=== PATIENT | female | born 1990 | race Caucasian/White ===

== ENCOUNTER 2021-03-14 04:55 | Inpatient (IN) | payer SELFPAY ==
[2021-03-14] MEDS ORDERED: Acetaminophen 500 MG Tab PO ONE (05:45)
[2021-03-14] MEDS ORDERED: Scopolamine 1.5 MG Transdermal Patch TOP ONE (05:45)
[2021-03-14] MEDS ORDERED: Dextrose 5%-Lactated Ringers 1,000 ML IV SCH (06:00)
[2021-03-14] MEDS ORDERED: cefOXitin 2 GM Vial ONE (07:00)
[2021-03-14] MEDS ORDERED: fentaNYL 250 MCG/5 ML SDV ONE ×2 (07:13→07:44)
[2021-03-14] MEDS ORDERED: Propofol 200 MG/20 ML SDV ONE (07:14)
[2021-03-14] MEDS ORDERED: Neostigmine Methylsulfate 1 MG/ML 5 ML Syringe ONE (07:14)
[2021-03-14] MEDS ORDERED: Rocuronium 50 MG/5 ML Vial ONE ×2 (07:14→07:44)
[2021-03-14] MEDS ORDERED: Dexamethasone 4 MG/ML SDV ONE (07:14)
[2021-03-14] MEDS ORDERED: Glycopyrrolate 0.2 MG/ML 5 ML MDV ONE (07:14)
[2021-03-14] MEDS ORDERED: Ondansetron 4 MG/2 ML SDV ONE (07:14)
[2021-03-14] MEDS ORDERED: Ketamine 500 MG/5 ML MDV IV SCH (07:15)
[2021-03-14] MEDS ORDERED: cefOXitin 2 GM in Sodium Chloride 0.9% 50 ML IV ONE (07:15)
[2021-03-14] MEDS ORDERED: Ketamine 17 MG in Sodium Chloride 0.9% 19.83 ML IV SCH (07:15)
[2021-03-14] MEDS ORDERED: Sugammadex Sodium 200 MG/2 ML VIAL ONE (09:00)
[2021-03-14] MEDS ORDERED: Levofloxacin/Dextrose 5%-Water 500 MG in Premix Bag 1 BAG IV ONE (09:15)
[2021-03-14] MEDS ORDERED: Cyclobenzaprine 10 MG Tab PO PRN (10:07)
[2021-03-14] MEDS ORDERED: Acetaminophen 500 MG Tab PO PRN (11:00)
[2021-03-14] MEDS ORDERED: Metoclopramide 10 MG/2 ML SDV IVPUSH PRN (11:00)
[2021-03-14] MEDS ORDERED: HYDROmorphone 1 MG/ML Syringe IV PRN (11:00)
[2021-03-14] MEDS ORDERED: HYDROmorphone 0.5 MG/0.5 ML Syringe IVPUSH PRN (11:00)
[2021-03-14] MEDS ORDERED: traMADol 50 MG Tab PO PRN (11:00)
[2021-03-14] MEDS ORDERED: Ondansetron 4 MG/2 ML SDV IVPUSH PRN (11:00)
[2021-03-14] MEDS ORDERED: Labetalol 20 MG/4 ML Syringe IVPUSH PRN (11:00)
[2021-03-14] MEDS ORDERED: hydrOXYzine HCL 100 MG/2 ML SDV IM PRN (11:00)
[2021-03-14] MEDS ORDERED: diphenhydrAMINE 50 MG/ML SDV IVPUSH PRN (11:00)
[2021-03-14] MEDS ORDERED: Pantoprazole 40 MG Vial IVPUSH SCH (12:00)
[2021-03-14] MEDS: Acetaminophen 500 MG Tab PO SCH ×2 (13:59→21:01)
[2021-03-14] MEDS: oxyCODONE 5 MG Tab PO PRN (15:50)
[2021-03-14] MEDS ORDERED: MVI, Adult with Vitamin K 10 ML, Thiamine 200 MG, Zinc/Copper/Manganese/Selenium 1 ML i... IV SCH ×4 (16:00)
[2021-03-14] MEDS: Heparin Sodium 5,000 Units/ML Vial SUBCUT SCH (17:37)
[2021-03-14] MEDS: cloNIDine 0.1 MG Tab PO SCH (21:00)
[2021-03-14] MEDS: Labetalol 100 MG Tab PO SCH (21:00)
[2021-03-14] MEDS: amLODIPine 5 MG Tab PO SCH (21:00)
[2021-03-14] MEDS: Sodium Bicarbonate 650 MG Tab PO SCH (21:00)
[2021-03-14] MEDS: Dextrose 5%-Lactated Ringers 1,000 ML IV SCH (21:06)
[2021-03-15] MEDS ORDERED: Iopamidol 612 MG/ML 50 ML SDV PO STA (02:55)
[2021-03-15] MEDS: Dextrose 5%-Lactated Ringers 1,000 ML IV SCH (03:03)
[2021-03-15] MEDS: oxyCODONE 5 MG Tab PO PRN (03:40)
[2021-03-15] MEDS: Heparin Sodium 5,000 Units/ML Vial SUBCUT SCH ×2 (05:41→17:50)
[2021-03-15] MEDS: Acetaminophen 500 MG Tab PO SCH ×3 (05:41→23:03)
[2021-03-15] MEDS ORDERED: Ondansetron 4 MG Tab.DIS PO PRN (07:16)
[2021-03-15] MEDS ORDERED: hydrOXYzine HCl 25 MG Tab PO PRN (07:19)
[2021-03-15] MEDS ORDERED: Dextrose 5%-Lactated Ringers 1,000 ML IV SCH (07:30)
[2021-03-15] MEDS: cloNIDine 0.1 MG Tab PO SCH ×2 (08:31→20:06)
[2021-03-15] MEDS: Sodium Bicarbonate 650 MG Tab PO SCH ×2 (08:31→20:06)
[2021-03-15] MEDS: Labetalol 100 MG Tab PO SCH ×2 (08:31→20:06)
[2021-03-15] MEDS: SCOPOLAMINE PATCH CHECK TOP SCH (08:32)
[2021-03-15] MEDS: Levofloxacin/Dextrose 5%-Water 250 MG in Premix Bag 1 BAG IV SCH (09:11)
[2021-03-15] MEDS ORDERED: Pantoprazole 40 MG Delayed-Release Granules 1 Packet PO SCH (11:30)
[2021-03-15] MEDS ORDERED: MVI, Adult with Vitamin K 10 ML, Thiamine 200 MG, Zinc/Copper/Manganese/Selenium 1 ML i... IV SCH ×4 (16:00)
[2021-03-15] MEDS: amLODIPine 5 MG Tab PO SCH (20:06)
[2021-03-16] MEDS: Acetaminophen 500 MG Tab PO SCH (05:37)
[2021-03-16] MEDS: Heparin Sodium 5,000 Units/ML Vial SUBCUT SCH (05:38)
[2021-03-16] MEDS: Labetalol 100 MG Tab PO SCH (08:28)
[2021-03-16] MEDS: cloNIDine 0.1 MG Tab PO SCH (08:28)
[2021-03-16] MEDS: SCOPOLAMINE PATCH CHECK TOP SCH (08:28)
[2021-03-16] MEDS: Sodium Bicarbonate 650 MG Tab PO SCH (08:29)
[2021-03-16] MEDS ORDERED: Cyanocobalamin (Vitamin B12) 1,000 MCG/ML SDV IM ONE (09:00)
[2021-03-16] MEDS ORDERED: Magnesium Hydroxide 400 MG/5 ML Susp 30 ML Cup PO ONE (09:00)
[2021-03-16] MEDS: Levofloxacin/Dextrose 5%-Water 250 MG in Premix Bag 1 BAG IV SCH (09:13)
== END 2021-03-16 12:14 | disposition home or self-care (01) | DRG 620 ==
LOC: JP.SDS 05:41 → JP.SDSSCHI 05:41 → EDSTATUS 07:15 → JP.MS 09:51
PROVIDERS: ADMIT Surgery; ATTEND Surgery
PROC: 0DB64Z3 Excision of Stomach, Percutaneous Endoscopic Approach, Vertical (ICD-10-PCS; principal; 2021-03-14)
PROC: 0FB24ZX Excision of Left Lobe Liver, Percutaneous Endoscopic Approach, Diagnostic (ICD-10-PCS; 2021-03-14)
PROC: 0BQT4ZZ Repair Diaphragm, Percutaneous Endoscopic Approach (ICD-10-PCS; 2021-03-14)
DX: E66.01 Morbid (severe) obesity due to excess calories (principal); N18.4 Chronic kidney disease, stage 4 (severe); Q21.1 Atrial septal defect; D63.1 Anemia in chronic kidney disease; G47.33 Obstructive sleep apnea (adult) (pediatric); G93.2 Benign intracranial hypertension; E55.9 Vitamin D deficiency, unspecified; F41.1 Generalized anxiety disorder; F32.9 Major depressive disorder, single episode, unspecified; I12.9 Hypertensive chronic kidney disease with stage 1 through stage 4 chronic kidney disease, or unspecified chronic kidney disease; R16.0 Hepatomegaly, not elsewhere classified; K44.9 Diaphragmatic hernia without obstruction or gangrene; Z87.891 Personal history of nicotine dependence; Z68.41 Body mass index [BMI] 40.0-44.9, adult; Z79.899 Other long term (current) drug therapy
CPT/HCPCS: 36415; 74240; 74240-26; 80048; 80053; 81025; 82947; 83735; 84100; 85025; 86850; 86900; 86901; A9270-GY; C9113; J0171; J0694; J1100; J1644; J1956; J2405; J2704; J2710; J2795; J3010; J3410; J3411; J3420; J3490; J7121; Q9967